=== PATIENT | male | born 1965 | race Hispanic/Latino ===

== ENCOUNTER 2016-12-16 23:33 | Observation (INO) | payer OTHER ==
--- NOTE | 2016-12-16 23:37 | EDPD ---
HPI Stroke - General Time Seen by Provider: 12/16/16 23:35 Historian: Spouse, EMS - History of Present Illness Narrative History of Present Illness (Free Text): 12/16/16 23:34 Kiel Bryant is a 51 year old male, whose past medical history includes recurrent TIAs, depression, anxiety, COPD, and alcoholism, who presents to the Emergency department brought in by EMS accompanied by complaining of weakness and altered mental status prior to arrival. states patient returned from his sister's wake earlier today and began complaining of left- sided chest pain radiating to his left arm. states patient then began slurring his speech and experiencing generalized weakness. Patient became poorly responsive with a blank stare and non-verbal. Limited HPI and ROS due to patient's altered mental status. Date:: 12/16/16 Time: 23:34 Onset:: Just prior to presenting Timing: Currently Symptomatic Context: Home Associated Symptoms: Chest pain, Dysarthria Exacerbated by: Nothing Relieved by: Nothing - Location Location: Speech rTPA Inclusion/Exclusion - Refusal of Treatment Patient Refused Treatment: No - Inclusion Criteria for Altepase Patient is 18 years or Older: Yes The Clinical Diagnosis of Ischemic Stroke That is Causing a Potentially Disabling Neurological Deficit: No Time of Onset is Well Established to be Less Than 270 Minute Before Treatment Would Begin: Yes Risk/Benefit Discussed With Patient/Family Member Present: Yes - Exclusion Criteria for Altepase Uncontrolled Hypertension at Time of Treatment (Systolic BP above 185 or Diastolic BP above 110 mmHg): No Active Internal Bleeding: No Known Bleeding Diathesis Including but Not Limited to: Platelets Below 100,000/ mm,PTT Above 40 sec After Heparin Use, Current Use of Oral Anitcoagulant With INR Greater Than 1.7 or PT Greater Than 15 secs: No Evidence of an Intracranial Hemorrhage: No Evidence of Major Acute Infarct With Signs Greater Than 1/3 MCA Territory: No Suspicion of Subarachnoid Hemorrhage on Pretreatment Evaluation Even if CT Head Negative For Hemorrhage: No - Warning to TPA With Conditions Following Conditions Weighed Against Anticipated Benefit: Yes Condition: Stroke Serevity Too Mild, Rapid Improvement Past Medical History - Provider Review Nursing Documentation Reviewed: Yes - Infectious Disease Hx of Infectious Diseases: None - Tetanus Immunization Tetanus Immunization: Unknown - Past Medical History Past Medical History: No Previous - Cardiac Hx Cardiac Disorders: No - Pulmonary Hx Chronic Obstructive Pulmonary Disease (COPD): Yes - Neurological HX Cerebrovascular Accident: Yes - HEENT Hx HEENT Disorder: No - Renal Hx Renal Disorder: No - Endocrine/Metabolic Hx Endocrine Disorders: No - Hematological/Oncological Hx Blood Disorders: No - Integumentary Hx Dermatological Disorder: No - Musculoskeletal/Rheumatological Hx Falls: No - Gastrointestinal Hx Gastrointestinal Disorders: No Hx Pancreatitis: Yes - Genitourinary/Gynecological Hx Genitourinary Disorders: No - Psychiatric Hx Psychophysiologic Disorder: Yes Hx Anxiety: Yes Hx Depression: Yes Hx Substance Use: No - Past Surgical History Past Surgical History: No Previous - Surgical History Hx Amputation: No Hx Appendectomy: No Hx Cardiac Catheterization: No Hx Cholecystectomy: No Hx Coronary Stent: No Hx Gastric Bypass Surgery: No Hx Hysterectomy: No Hx Joint Replacement: No Hx Kidney Transplant: No Hx Liver Transplant: No Hx Mastectomy: No Hx Musculoskeletal Surgery: No Hx Open Heart Surgery: No Hx Orthopedic Surgery: No Hx Splenectomy: No Hx Valve Replacement: No Other/Comment: ziyad ears, growths removed hearing loss left ear - Anesthesia Hx Anesthesia: Yes Hx Anesthesia Reactions: No Hx Malignant Hyperthermia: No - Suicidal Assessment Feels Threatened In Home Enviroment: No Family/Social History - Family/Social History Family History: Non-Contributory - Review Nursing documentation reviewed.: Yes Allergies/Home Meds Allergies/Adverse Reactions: Allergies No Known Allergies Allergy (Verified 12/17/16 00:00) Home Medications: Home Meds Medication Instructions Recorded Confirmed Aspirin [Ecotrin] 81 mg PO DAILY 03/24/16 12/17/16 Gabapentin [Neurontin] 300 mg PO QID 12/17/16 12/17/16 Review of Systems - Review of Systems Systems not reviewed;Unavailable: Altered Mental Status Constitutional: Other (+generalized weakness) Neurological: Speech Changes (+slurred speech), Other (+poorly responsive) ED Stroke Physical Exam Vital Signs Reviewed: Yes Temperature: Afebrile Blood Pressure: Hypertensive Pulse: Regular Respiratory Rate: Normal Appearance: Positive for: Non-Toxic, Comfortable Pain Distress: None Mental Status: Positive for: other (Blank stare, non-verbal) - Systems Exam Head: Present: Atraumatic, Normocephalic Pupils: Present: PERRL Extroacular Muscles: Present: EOMI Conjunctiva: Present: Normal Ears: Present: Normal, NORMAL TM, Normal Canal Mouth: Present: Moist Mucous Membranes Pharnyx: Present: Normal Nose (External): Present: Atraumatic Nose (Internal): Present: Normal Inspection Neck: Present: Normal Range of Motion Respiratory/Chest: Present: Clear to Auscultation, Good Air Exchange. No: Respiratory Distress, Accessory Muscle Use Cardiovascular: Present: Regular Rate and Rhythm, Normal S1, S2. No: Murmurs Abdomen: Present: Normal Bowel Sounds. No: Tenderness, Distention, Peritoneal Signs Upper Extremity: Present: Normal Inspection, Normal ROM, NORMAL PULSES, Neurovascularly Intact. No: Cyanosis, Edema Lower Extremity: Present: Normal Inspection, NORMAL PULSES, Normal ROM, Neurovascularly Intact. No: Edema Neurologic: Present: GCS=15, Motor Func Grossly Intact, Normal Sensory Function , Facial Droop (Slight flattening/facial droop on right). No: Speech Normal ( Non-verbal) Skin: Present: Warm, Dry, Normal Color. No: Rashes Psychiatric: Present: Other (Blank stare, non-verbal) Medical Decision Making ED Course and Treatment: 12/16/16 23:34 Impression: 51 year old male brought in for slurred speech, generalized weakness, and altered mental status. Differential Diagnosis include but are not limited to: TIA vs. CVA vs. altered mental status Plan: -- CT Head w/o contrast -- EKG -- Chest X-ray -- Labs, troponin, blood type and screen, and lipid panel -- Reassess and disposition Prior Visits: Notes and results from previous visits were reviewed. Progress Notes: 12/16/16 23:34 Code Stroke called. Pt taken CT scan. 12/16/16 23:[address] Rafi Gant, who is aware and agrees with plan. Pt does not meet criteria for TPA. 12/16/16 23:59 Reviewed radiology, Chest X-ray shows no active disease. CT Head shows: No acute intracranial hemorrhage, or suspicious mass effect. 12/17/16 00:05 Reviewed EKG, NSR at 64 bpm. Sinus arrhythmia. Incomplete RBBB. Non-specific ST/ T wave changes. Pt returned from CT scan. Pt now alert, talkative, and states he feels fine. 12/17/16 00:45 Case discussed with emergency medical technician/driver, who is aware and agrees with plan. 12/17/16 00:[address] Mendes, who is aware and agrees with plan. Accepts pt in to hospitalist service. Pt will go to Telemetry observation for TIA and chest pain. - Critical Care Critical Care Minutes: 30 minutes - Lab Interpretations I have reviewed the lab results: Yes - RAD Interpretation Narrative RAD Interpretations (Text): Chest X-ray shows no active disease. CT Head shows: Brain: No acute intracranial hemorrhage. No significant white matter disease. No edema. Ventricles: No significant ventriculomegaly. Bones: No acute displaced fracture. Sinuses: Unremarkable as visualized. No acute sinusitis. Mastoid air cells: Unremarkable as visualized. No mastoid effusion. IMPRESSION: No acute intracranial hemorrhage, or suspicious mass effect. Obedience Trainer: ED Physician, Radiologist - EKG Interpretation Interpreted by ED Physician: Yes Type: 12 lead EKG NIHSS Scale([place]) 2 Time Performed: 00:05 - How Severe is the Stoke Baseline Level of Consciousness: 0=Alert LOC to Questions: 0=Both comments correct LOC to commands: 0=Obeys both correctly Best Gaze: 0=Normal Visual: 0=No visual loss Facial: 0=Normal Motor Arm - Left: 0=No drift Motor Arm - Right: 0=No drift Motor Leg - Left: 0=No drift Motor Leg - Right: 0=No drift Limb Ataxia: 0=Absent Sensory: 0=Normal Best Language: 0=No aphasia Dysarthia: 0=Normal articulation Extinction & Inattention (Neglect): 0=Normal, no object Score: 0 Risk Level: No Stroke Risk - Scribe Statement The provider has reviewed the documentation as recorded by the Scribmaria ines Grey All medical record entries made by the Scribe were at my direction and personally dictated by me. I have reviewed the chart and agree that the record accurately reflects my personal performance of the history, physical exam, medical decision making, and the department course for this patient. I have also personally directed, reviewed, and agree with the discharge instructions and disposition. NIHSS Scale ([place]) Time Performed: 23:34 - How Severe is the Stoke Baseline Level of Consciousness: 1=Drowsy LOC to Questions: 0=Both comments correct LOC to commands: 0=Obeys both correctly Best Gaze: 0=Normal Visual: 0=No visual loss Facial: 1=Minor asymmetry Motor Arm - Left: 0=No drift Motor Arm - Right: 0=No drift Motor Leg - Left: 0=No drift Motor Leg - Right: 0=No drift Limb Ataxia: 0=Absent Sensory: 0=Normal Best Language: 0=No aphasia Dysarthia: 0=Normal articulation Extinction & Inattention (Neglect): 0=Normal, no object Score: 2 Risk Level: Minor Stroke Risk Disposition/Present on Arrival - Present on Arrival Any Indicators Present on Arrival: No History of DVT/PE: No History of Uncontrolled Diabetes: No Urinary Catheter: No History of Decub. Ulcer: No History Surgical Site Infection Following: None - Disposition Have Diagnosis and Disposition been Completed?: Yes Diagnosis: Chest pain, Transient ischemic attack Disposition: HOSPITALIZED Disposition Time: 00:52 Patient Plan: Observation Patient Problems: Current Active Problems Problem Status Onset Chest pain Acute Transient ischemic attack Acute Condition: STABLE
[2016-12-16 23:52] LABS: ADD MANUAL DIFF? NO
[2016-12-16 23:55] LABS: BASO # 0.07 K/mm3 (0.0-2.0); BASO % 0.5 % (0.0-3.0); EOS # 1.1 (0.0-0.7); GRAN # 6.81 (1.4-6.5); GRAN % 51.7 % (50.0-68.0); HEMATOCRIT 40.9 % (42.0-52.0); LYMPH # 4.1 (1.2-3.4); LYMPH % 30.9 % (22.0-35.0); MEAN CORPUSCULAR HEMOGLOBIN 28.2 pg (25.0-35.0); MEAN PLATELET VOLUME 9.1 fl (7.0-11.0); MONO # 1.2 (0.1-0.6); MONO % 8.9 % (1.0-6.0); PLATELET COUNT 259 10^3/uL (120.0-450.0); WHITE BLOOD COUNT 13.2 10^3/ul (4.5-11.0)
--- NOTE | 2016-12-16 23:55 | CT ---
EXAM: CT Head Without Intravenous Contrast CLINICAL HISTORY: 51 years old, male; Signs and symptoms; Altered mental status/memory loss; Additional info: Code stroke TECHNIQUE: Axial computed tomography images of the head/brain without intravenous contrast. This CT exam was performed using one or more of the following dose reduction techniques: automated exposure control, adjustment of the mA and/or kV according to patient size, and/or use of iterative reconstruction technique. COMPARISON: CT - HEAD W/O CONTRAST 03/24/2016 8:34:33 AM FINDINGS: Brain: No acute intracranial hemorrhage. No significant white matter disease. No edema. Ventricles: No significant ventriculomegaly. Bones: No acute displaced fracture. Sinuses: Unremarkable as visualized. No acute sinusitis. Mastoid air cells: Unremarkable as visualized. No mastoid effusion. IMPRESSION: No acute intracranial hemorrhage, or suspicious mass effect.
[2016-12-17 00:02] LABS: INR 0.99 (0.93-1.08); PARTIAL THROMBOPLASTIN TIME 28.1 Seconds (23.7-30.8)
[2016-12-17 00:21] LABS: TROPONIN I < 0.01 ng/mL
[2016-12-17 00:28] LABS: ALB/GLOB RATIO 1.1 (1.1-1.8); ALKALINE PHOSPHATASE 69 U/L (38-133); ALT/SGPT 22 U/L (7-56); AST/SGOT 18 U/L (15-59); BILIRUBIN,TOTAL 0.5 mg/dL (0.2-1.3); BLOOD UREA NITROGEN 20 mg/dL (7-21); CALCIUM 9.3 mg/dL (8.4-10.5); CARBON DIOXIDE 26 mmol/L (21-33); CHLORIDE 97 mmol/L (98-107); CHOLESTEROL 195 mg/dL (130-200); GFR AFRICAN-AMERICAN > 60; GLUCOSE,RANDOM 104 mg/dL (70-110); SODIUM 138 mmol/L (132-148); TOTAL PROTEIN 8.3 g/dL (5.8-8.3)
--- NOTE | 2016-12-17 02:42 | CP.PCM.HP ---
<Dk Dempsey - Last Filed: 12/17/16 04:27> History of Present Illness - History of Present Illness History of Present Illness: Dk Dempsey D.O. PGY-1, Internal Medicine Resident, Night Float Admission CC: episode of blank staring and tight body 51 year old male with a PMH of sixteen transient ischemic attacks and left ear deafness who presents to [facility] on 12/17/16 after an episode at home where he just stared blankly and was very stiff. Patient is accompanied by who is able to recall the events since the patient remembers only leading up to the event. Patient states that his sister 2 days ago and today was her wake. He attended both the morning and evening wake and was doing ok, but when he got home and sat down he felt strange. states that at this moment was when he was "just sitting there staring out, like he wasn't really there, and his body was all stiff." Patient denies ever having had these symptoms before. They cannot think of anything at that time that could have triggered it. Patient states that he did have one seizure in the past while admitted for a TIA that consisted of tonic-clonic movements and LOC. Otherwise patient also admits that he has been feeling "off" for at least 3 days. Patient denies any other symptoms , loss of urine or feces, tongue biting, or other symptoms. 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 PMH: as above PSH: left ear surgery x2 SH: smokes 1ppd x 33 years, denies alcohol or drug use FH: denies Meds: reviewed Allergies: NKA Present on Admission - Present on Admission Any Indicators Present on Admission: No Review of Systems - Constitutional Constitutional: absent: Anorexia, Chills, Fatigue - EENT Eyes: absent: Blind Spots, Blurred Vision Ears: absent: Decreased Hearing, Ear Discharge Nose/Mouth/Throat: absent: Epistaxis, Nasal Congestion - Cardiovascular Cardiovascular: absent: Chest Pain, Leg Edema, Palpitations - Respiratory Respiratory: absent: Cough, Dyspnea - Gastrointestinal Gastrointestinal: absent: Abdominal Pain, Constipation, Diarrhea, Nausea, Vomiting - Genitourinary Genitourinary: absent: Dysuria, Hematuria - Musculoskeletal Musculoskeletal: absent: Abnormal Gait, Arthralgias, Neck Pain - Integumentary Integumentary: absent: Pruritus, Rash, Sores - Neurological Neurological: Memory Loss, Other (tonic) Past Patient History - Infectious Disease Hx of Infectious Diseases: None - Tetanus Immunizations Tetanus Immunization: Unknown - Past Medical History & Family History Past Medical History?: Yes - Past Social History Smoking Status: Light Smoker < 10 Cigarettes Daily - CARDIAC Hx Cardiac Disorders: No - PULMONARY Hx Chronic Obstructive Pulmonary Disease (COPD): Yes - NEUROLOGICAL HX Cerebrovascular Accident: Yes - HEENT Hx HEENT Problems: No - RENAL Hx Chronic Kidney Disease: No - ENDOCRINE/METABOLIC Hx Endocrine Disorders: No - HEMATOLOGICAL/ONCOLOGICAL Hx Blood Disorders: No - INTEGUMENTARY Hx Dermatological Problems: No - MUSCULOSKELETAL/RHEUMATOLOGICAL Hx Falls: No - GASTROINTESTINAL Hx Gastrointestinal Disorders: No Hx Pancreatitis: Yes - GENITOURINARY/GYNECOLOGICAL Hx Genitourinary Disorders: No - PSYCHIATRIC Hx Psychophysiologic Disorder: Yes Hx Anxiety: Yes Hx Depression: Yes Hx Substance Use: No - SURGICAL HISTORY Hx Amputation: No Hx Appendectomy: No Hx Cardiac Catheterization: No Hx Cholecystectomy: No Hx Coronary Stent: No Hx Gastric Bypass Surgery: No Hx Hysterectomy: No Hx Joint Replacement: No Hx Kidney Transplant: No Hx Liver Transplant: No Hx Mastectomy: No Hx Musculoskeletal Surgery: No Hx Open Heart Surgery: No Hx Orthopedic Surgery: No Hx Splenectomy: No Hx Valve Replacement: No Other/Comment: ziyad ears, growths removed hearing loss left ear - ANESTHESIA Hx Anesthesia: Yes Hx Anesthesia Reactions: No Hx Malignant Hyperthermia: No Meds Allergies/Adverse Reactions: Allergies Allergy/AdvReac Type Severity Reaction Status Date / Time No Known Allergies Allergy Verified 12/17/16 00:00 Physical Exam - Constitutional Additional comments: well developed, well nourished, pleasant male resting in bed in NAD, at bedside - Head Exam Head Exam: ATRAUMATIC, NORMOCEPHALIC - Eye Exam Eye Exam: EOMI, PERRL. absent: Conjunctival injection, Scleral icterus - ENT Exam ENT Exam: Mucous Membranes Moist, Normal Oropharynx - Neck Exam Neck exam: Positive for: Full Rom. Negative for: Lymphadenopathy - Respiratory Exam Respiratory Exam: Clear to Auscultation Bilateral. absent: Rales, Rhonchi, Wheezes - Cardiovascular Exam Cardiovascular Exam: RRR, +S1, +S2. absent: Diastolic murmur, Gallop, Rubs, Systolic Murmur - GI/Abdominal Exam GI & Abdominal Exam: Normal Bowel Sounds, Soft. absent: Distended, Tenderness - Extremities Exam Extremities exam: Positive for: normal capillary refill, pedal pulses present. Negative for: calf tenderness, joint swelling, pedal edema, tenderness - Back Exam Back exam: absent: muscle spasm, paraspinal tenderness, vertebral tenderness - Neurological Exam Neurological exam: Alert, Oriented x3 Additional comments: mild right facial palsy with drop, otherwise cranial nerves intact, speech is fluid and coherent, diffusely 4/5 muscle strength but appears secondary to poor effort ("I just feel weak all over"), WHELAN, SLIT, other than previously known deficits appears nonfocal - Skin Skin Exam: Dry, Intact, Warm Results - Vital Signs Recent Vital Signs: Last Vital Signs Temp 98.2 F 12/16/16 23:57 Pulse 62 12/17/16 01:29 Resp 17 12/17/16 01:29 BP 126/75 12/17/16 01:29 Pulse Ox 100 12/17/16 01:29 - Labs Result Diagrams: 12/16/16 23:45 12/16/16 23:45 Assessment & Plan - Assessment and Plan (Free Text) Assessment: 51 year old male with a PMH of sixteen transient ischemic attacks and left ear deafness who presents to [facility] after an episode at home where he just stared blankly and was very stiff. Plan: 1. Staring episode Placed in obs Etiology may include TIA vs seizure vs stress induced with recent of sister Head CT reviewed by myself and read reviewed as well, no acute intracranial bleed or mass effect noted Neurochecks [id number] Gant neurologist EEG ordered Lipid panel, thyroid profile, HgbA1C, and Heart healthy diet Drug screen ordered I spent greater than 45 minutes with the patient, of which more than 20 minutes was spent counseling the patient in detail about his risk factors, particularly smoking, and how cessation would be one of the greatest changes he could make towards greater health, patient verbalized understanding and agreement, wants to quit so was offered education on methods, will think about it and get back to us 2. Leukocytosis Mild at this time, likely reactive Will follow up with a CBC in the AM 3. Tobacco abuse Started nicotine patch As above, counseled on cessation 4. Hx of alcohol abuse Although not disclosed by patient, known alcohol abuse Drug and alcohol levels ordered PRN ativan placed Give one time dose due to some tremor CIWA placed DVT ppx: SCDs Patient was seen and examined at bedside and case was discussed at length with attending physician. - Date & Time Date: 12/17/16 Time: 03:00 <Rod Mendes MD - Last Filed: 12/18/16 14:39> Results - Vital Signs Recent Vital Signs: Last Vital Signs Temp 98 F 12/17/16 12:00 Pulse 53 L 12/17/16 14:00 Resp 18 12/17/16 12:00 BP 112/59 L 12/17/16 12:00 Pulse Ox 97 12/17/16 05:29 - Labs Result Diagrams: 12/16/16 23:45 12/16/16 23:45 Attending/Attestation - Attestation I have personally seen and examined this patient.: Yes I have fully participated in the care of the patient.: Yes I have reviewed all pertinent clinical information: Yes Notes (Text): 12/18/16 14:39 -I agree with the above H&P completed by the resident physician.
[2016-12-17 04:06] VITALS: BMI 26.4
[2016-12-17 04:06] LABS: ALCOHOL SERUM < 10 mg/dL (0-10)
[2016-12-17 04:13] LABS: FREE T4 0.96 ng/dL (0.78-2.19)
[2016-12-17 04:27] LABS: THYROID STIMULATING HORMONE 5.45 mIU/mL (0.46-4.68)
[2016-12-17 05:30] VITALS: O2SAT 97
[2016-12-17 07:20] LABS: CHOLESTEROL 180 mg/dL (130-200)
--- NOTE | 2016-12-17 08:02 | RAD ---
HISTORY: tia COMPARISON: 03/24/2016 FINDINGS: LUNGS: No active pulmonary disease. PLEURA: No significant pleural effusion identified, no pneumothorax apparent. CARDIOVASCULAR: Normal. OSSEOUS STRUCTURES: No significant abnormalities. VISUALIZED UPPER ABDOMEN: Normal. OTHER FINDINGS: None. IMPRESSION: No active disease.
--- NOTE | 2016-12-17 12:11 | CARD ---
APPROVED REPORT EKG Measurement Heart [id number] IL 158P57 [id number] <Conclusion> Marked sinus bradycardia Septal infarct, age undetermined Abnormal ECG
[2016-12-17 12:15] VITALS: BP 112/59; PULSE 53; RESP 18; TEMP 98
--- NOTE | 2016-12-17 12:16 | CARD ---
APPROVED REPORT EKG Measurement Heart [id number] <Conclusion> Normal sinus rhythm with sinus arrhythmia Possible Left atrial enlargement Incomplete right bundle branch block Borderline ECG
--- NOTE | 2016-12-17 13:16 | CON ---
DATE: 12/17/2016 This is a 51-year-old male with a past medical history of several TIAs and admitted with an episode o f starting blank stare and becoming stiff and thinks he had a seizure. Came to the hospital and call ed to evaluate the patient. The patient thinks he had a seizure. No tongue bite, no urinary inconti nence. PAST MEDICAL HISTORY: As above. SOCIAL HISTORY: Smokes 1 pack per day. ALLERGIES: No known drug allergy. PHYSICAL EXAMINATION: HEENT: Normocephalic, atraumatic. NECK: Supple. NEUROLOGIC: Alert, awake, oriented x 3. No aphasia. Cranial nerves II-XII were tested. Pupils edith ctive. EOM intact. Visual field full. No facial asymmetry. Tongue midline. Motor examination: M oves all the extremities equally. Tone normal. Deep tendon reflexes 1+. Both plantars are downgoin g. Sensory appears intact. Cerebellar, gait deferred. IMPRESSION: Rule out seizure, though less likely, and multiple transient ischemic attacks. CAT scan of the head is negative. WBC 13.2, hemoglobin 13.9, hematocrit 40.9, platelets 259. Sodium 138, potassium 4, chloride 97, CO2 26, glucose 104, BUN 20, creatinine 1. Workup in progress. We will do EEG and follow up. Raulito Gant MD cc: [id number] TT: 12/17/2016 13:15:34 Confirmation # [id number] Dictation # [id number]
--- NOTE | 2016-12-17 15:22 | CP.PCM.DIS ---
<JuanJulieta - Last Filed: 12/17/16 15:11> Provider - Provider Date of Admission: 12/17/16 01:08 Attending physician: Jadiel Pickering MD Primary care physician: Mary Saucedo DO Consults: Neuro: Stalin Time Spent in preparation of Discharge (in minutes): 35 Hospital Course - Lab Results Lab Results: Most Recent Lab Values WBC 13.2 10^3/ul (4.5-11.0) H 12/16/16 23:45 RBC 4.93 10^6/uL (3.5-6.1) 12/16/16 23:45 Hgb 13.9 gm/dL (14.0-18.0) L 12/16/16 23:45 Hct 40.9 % (42.0-52.0) L 12/16/16 23:45 MCV 83.0 fL (80.0-105.0) 12/16/16 23:45 MCH 28.2 pg (25.0-35.0) 12/16/16 23:45 MCHC 34.0 g/dl (31.0-37.0) 12/16/16 23:45 RDW 16.0 % (11.5-14.5) H 12/16/16 23:45 Plt Count 259 10^3/uL (120.0-450.0) 12/16/16 23:45 MPV 9.1 fl (7.0-11.0) 12/16/16 23:45 Gran % 51.7 % (50.0-68.0) 12/16/16 23:45 Lymph % (Auto) 30.9 % (22.0-35.0) 12/16/16 23:45 Leake % (Auto) 8.9 % (1.0-6.0) H 12/16/16 23:45 Eos % (Auto) 8.0 % (1.5-5.0) H 12/16/16 23:45 Baso % (Auto) 0.5 % (0.0-3.0) 12/16/16 23:45 Gran # 6.81 (1.4-6.5) H 12/16/16 23:45 Lymph # 4.1 (1.2-3.4) H 12/16/16 23:45 Leake # 1.2 (0.1-0.6) H 12/16/16 23:45 Eos # 1.1 (0.0-0.7) H 12/16/16 23:45 Baso # 0.07 K/mm3 (0.0-2.0) 12/16/16 23:45 PT 10.7 Seconds (9.9-11.8) 12/16/16 23:45 INR 0.99 (0.93-1.08) 12/16/16 23:45 APTT 28.1 Seconds (23.7-30.8) 12/16/16 23:45 Sodium 138 mmol/L (132-148) 12/16/16 23:45 Potassium 4.0 mmol/L (3.6-5.0) 12/16/16 23:45 Chloride 97 mmol/L (98-107) L 12/16/16 23:45 Carbon Dioxide 26 mmol/L (21-33) 12/16/16 23:45 Anion Gap 19 (10-20) 12/16/16 23:45 BUN 20 mg/dL (7-21) 12/16/16 23:45 Creatinine 1.0 mg/dL (0.5-1.4) 12/16/16 23:45 Est GFR ( Amer) > 60 12/16/16 23:45 Est GFR (Non-Af Amer) > 60 12/16/16 23:45 POC Glucose (mg/dL) 85 mg/dL (65-110) 12/17/16 11:07 Random Glucose 104 mg/dL (70-110) 12/16/16 23:45 Hemoglobin A1c 5.7 % (4.2-6.5) 12/16/16 23:45 Calcium 9.3 mg/dL (8.4-10.5) 12/16/16 23:45 Total Bilirubin 0.5 mg/dL (0.2-1.3) 12/16/16 23:45 AST 18 U/L (15-59) 12/16/16 23:45 ALT 22 U/L (7-56) 12/16/16 23:45 Alkaline Phosphatase 69 U/L (38-133) 12/16/16 23:45 Troponin I < 0.01 ng/mL 12/17/16 06:30 Total Protein 8.3 g/dL (5.8-8.3) 12/16/16 23:45 Albumin 4.3 g/dL (3.0-4.8) 12/16/16 23:45 Globulin 4.0 gm/dL 12/16/16 23:45 Albumin/Globulin Ratio 1.1 (1.1-1.8) 12/16/16 23:45 Triglycerides 92 mg/dL (35-160) 12/17/16 06:30 Cholesterol 180 mg/dL (130-200) 12/17/16 06:30 LDL Cholesterol Direct 119 mg/dL (0-129) 12/17/16 06:30 HDL Cholesterol 38 mg/dL (29-60) 12/17/16 06:30 Free T4 0.96 ng/dL (0.78-2.19) 12/16/16 23:45 TSH 3rd Generation 5.45 mIU/mL (0.46-4.68) H 12/16/16 23:45 Urine Opiates Screen Negative (NEGATIVE) 12/17/16 00:39 Urine Methadone Screen Negative (NEGATIVE) 12/17/16 00:39 Ur Barbiturates Screen Negative (NEGATIVE) 12/17/16 00:39 Ur Phencyclidine Scrn Negative (NEGATIVE) 12/17/16 00:39 Ur Amphetamines Screen Negative (NEGATIVE) 12/17/16 00:39 U Benzodiazepines Scrn Negative (NEGATIVE) 12/17/16 00:39 U Oth Cocaine Metabols Negative (NEGATIVE) 12/17/16 00:39 U Cannabinoids Screen Negative (NEGATIVE) 12/17/16 00:39 Alcohol, Quantitative < 10 mg/dL (0-10) 12/16/16 23:45 Blood Type A POSITIVE 12/17/16 00:29 Blood Type Confirm A POSITIVE 12/17/16 00:40 Antibody Screen Negative 12/17/16 00:29 BBK History Checked No verified bt 12/17/16 00:29 - Hospital Course Hospital Course: This is a 51Y M with PMH CVA, multiple TIA, seizure, alcoholism, COPD, anxiety and depression who was admitted for an episode of blank staring and unresponsive after sister's . CT head was negative. Patient did not show any neurological deficits during the hospital stay and was able to walk to and from bathroom on his own. He did not have any further staring episodes. Patient had a carotid doppler with final read pending. Neurology was consulted and EEG was done. The neurologist suggested that the patient should stop taking neurontin and begin taking Keppra 500mg BID. The patient can follow up with Dr. Gant in his office in [address] Gant will review the EEG results with the patient. The patient was also given Lipitor 10mg daily for history of CVA. He can follow up with his PMD in 1 week. Due to the recent passing of his sister and history of depression, patient can follow up with psychiatry although he denies having depression at this time. - Date & Time of H&P Date of H&P: 12/17/16 Time of H&P: 02:00 Discharge Exam - Head Exam Head Exam: ATRAUMATIC, NORMOCEPHALIC - Eye Exam Eye Exam: EOMI, Normal appearance, PERRL Pupil Exam: NORMAL ACCOMODATION - ENT Exam ENT Exam: Mucous Membranes Moist - Neck Exam Neck exam: Full Rom - Respiratory Exam Respiratory Exam: Clear to PA & Lateral, NORMAL BREATHING PATTERN, UNREMARKABLE. absent: Rales, Rhonchi, Wheezes, Stridor - Cardiovascular Exam Cardiovascular Exam: REGULAR RHYTHM, +S1, +S2. absent: Gallop, Rubs, Systolic Murmur - GI/Abdominal Exam GI & Abdominal Exam: Normal Bowel Sounds, Soft, Unremarkable. absent: Mass, Rebound, Rigid, Tenderness - Extremities Exam Extremities exam: normal inspection - Neurological Exam Neurological exam: Alert, CN II-XII Intact, Normal Gait, Oriented x3 - Psychiatric Exam Psychiatric exam: Normal Affect, Normal Mood - Skin Skin Exam: Dry, Intact, Normal Color, Warm Discharge Plan - Discharge Medications Prescriptions: Atorvastatin [Lipitor] 10 mg PO DIN #30 tab levETIRAcetam [Keppra] 500 mg PO BID #60 tab - Follow Up Plan Condition: STABLE Disposition: HOME/ ROUTINE Instructions: Chest Pain (DC), Recurrent Seizures in Adults (DC) Additional Instructions: 1. Stop taking Gabapentin 2. Start taking Keppra 500mg BID and Lipitor 10mg daily 3. Follow up with Dr. Gant in 1 week. 4. Follow up with PMD at [facility] in 1 week. 5. Follow up with psych as needed for depression. Referrals: Mary Saucedo DO [Primary Care Provider] - Vickey Gant MD [Staff Provider] - Clinical Quality Measures - Date & Time of Discharge Summary Date of Discharge Summary: 12/17/16 Time of Discharge Summary: 15:12 <Jadiel Pickering - Last Filed: 12/17/16 16:08> Provider - Provider Date of Admission: 12/17/16 01:08 Attending physician: Jadiel Pickering MD Primary care physician: Mary Saucedo DO Hospital Course - Lab Results Lab Results: Most Recent Lab Values WBC 13.2 10^3/ul (4.5-11.0) H 12/16/16 23:45 RBC 4.93 10^6/uL (3.5-6.1) 12/16/16 23:45 Hgb 13.9 gm/dL (14.0-18.0) L 12/16/16 23:45 Hct 40.9 % (42.0-52.0) L 12/16/16 23:45 MCV 83.0 fL (80.0-105.0) 12/16/16 23:45 MCH 28.2 pg (25.0-35.0) 12/16/16 23:45 MCHC 34.0 g/dl (31.0-37.0) 12/16/16 23:45 RDW 16.0 % (11.5-14.5) H 12/16/16 23:45 Plt Count 259 10^3/uL (120.0-450.0) 12/16/16 23:45 MPV 9.1 fl (7.0-11.0) 12/16/16 23:45 Gran % 51.7 % (50.0-68.0) 12/16/16 23:45 Lymph % (Auto) 30.9 % (22.0-35.0) 12/16/16 23:45 Leake % (Auto) 8.9 % (1.0-6.0) H 12/16/16 23:45 Eos % (Auto) 8.0 % (1.5-5.0) H 12/16/16 23:45 Baso % (Auto) 0.5 % (0.0-3.0) 12/16/16 23:45 Gran # 6.81 (1.4-6.5) H 12/16/16 23:45 Lymph # 4.1 (1.2-3.4) H 12/16/16 23:45 Leake # 1.2 (0.1-0.6) H 12/16/16 23:45 Eos # 1.1 (0.0-0.7) H 12/16/16 23:45 Baso # 0.07 K/mm3 (0.0-2.0) 12/16/16 23:45 PT 10.7 Seconds (9.9-11.8) 12/16/16 23:45 INR 0.99 (0.93-1.08) 12/16/16 23:45 APTT 28.1 Seconds (23.7-30.8) 12/16/16 23:45 Sodium 138 mmol/L (132-148) 12/16/16 23:45 Potassium 4.0 mmol/L (3.6-5.0) 12/16/16 23:45 Chloride 97 mmol/L (98-107) L 12/16/16 23:45 Carbon Dioxide 26 mmol/L (21-33) 12/16/16 23:45 Anion Gap 19 (10-20) 12/16/16 23:45 BUN 20 mg/dL (7-21) 12/16/16 23:45 Creatinine 1.0 mg/dL (0.5-1.4) 12/16/16 23:45 Est GFR ( Amer) > 60 12/16/16 23:45 Est GFR (Non-Af Amer) > 60 12/16/16 23:45 POC Glucose (mg/dL) 85 mg/dL (65-110) 12/17/16 11:07 Random Glucose 104 mg/dL (70-110) 12/16/16 23:45 Hemoglobin A1c 5.7 % (4.2-6.5) 12/16/16 23:45 Calcium 9.3 mg/dL (8.4-10.5) 12/16/16 23:45 Total Bilirubin 0.5 mg/dL (0.2-1.3) 12/16/16 23:45 AST 18 U/L (15-59) 12/16/16 23:45 ALT 22 U/L (7-56) 12/16/16 23:45 Alkaline Phosphatase 69 U/L (38-133) 12/16/16 23:45 Troponin I < 0.01 ng/mL 12/17/16 06:30 Total Protein 8.3 g/dL (5.8-8.3) 12/16/16 23:45 Albumin 4.3 g/dL (3.0-4.8) 12/16/16 23:45 Globulin 4.0 gm/dL 12/16/16 23:45 Albumin/Globulin Ratio 1.1 (1.1-1.8) 12/16/16 23:45 Triglycerides 92 mg/dL (35-160) 12/17/16 06:30 Cholesterol 180 mg/dL (130-200) 12/17/16 06:30 LDL Cholesterol Direct 119 mg/dL (0-129) 12/17/16 06:30 HDL Cholesterol 38 mg/dL (29-60) 12/17/16 06:30 Free T4 0.96 ng/dL (0.78-2.19) 12/16/16 23:45 TSH 3rd Generation 5.45 mIU/mL (0.46-4.68) H 12/16/16 23:45 Urine Opiates Screen Negative (NEGATIVE) 12/17/16 00:39 Urine Methadone Screen Negative (NEGATIVE) 12/17/16 00:39 Ur Barbiturates Screen Negative (NEGATIVE) 12/17/16 00:39 Ur Phencyclidine Scrn Negative (NEGATIVE) 12/17/16 00:39 Ur Amphetamines Screen Negative (NEGATIVE) 12/17/16 00:39 U Benzodiazepines Scrn Negative (NEGATIVE) 12/17/16 00:39 U Oth Cocaine Metabols Negative (NEGATIVE) 12/17/16 00:39 U Cannabinoids Screen Negative (NEGATIVE) 12/17/16 00:39 Alcohol, Quantitative < 10 mg/dL (0-10) 12/16/16 23:45 Blood Type A POSITIVE 12/17/16 00:29 Blood Type Confirm A POSITIVE 12/17/16 00:40 Antibody Screen Negative 12/17/16 00:29 BBK History Checked No verified bt 12/17/16 00:29 Attending/Attestation - Attestation I have personally seen and examined this patient.: Yes I have fully participated in the care of the patient.: Yes I have reviewed all pertinent clinical information, including history, physical exam and plan: Yes Notes (Text): 12/17/16 16:04 attending note; Patient seen and examined with resident. This is a 51 year old Male with PMH of TIA, seizure, alcoholism, COPD, anxiety and depression who was admitted for an episode of blank staring and unresponsive after sister's . CT head is negative. Neurology evaluation appreciated. Started on keppra. Neurontin stopped. EEG done.patient will follow-up with Dr. Gant in 1 week. Continue aspirin and lipitor. PT evaluation Appreciated. discharge home today. diagnosis; Seizure tia depression
--- NOTE | 2016-12-17 18:41 | US ---
PROCEDURE: Bilateral carotid artery duplex ultrasound HISTORY: Carotid stenosis TIA PHYSICIAN(S): Skyler Johnson MD. TECHNIQUE: Duplex sonography and color-flow Doppler were used to evaluate the carotid bifurcations and limited segments of the vertebral arteries bilaterally. FINDINGS: There is mild smooth hypoechoic plaque noted at the carotid bifurcations bilaterally. The peak systolic velocity in the proximal right internal carotid artery is 71 cm/sec. This corresponds to a 0-19 percent proximal right ICA stenosis. Normal systolic velocities are noted in the proximal right external carotid artery. There is antegrade flow in the right vertebral artery. The peak systolic velocity in the proximal left internal carotid artery is 90 cm/sec. This corresponds to a 0-19 percent proximal left ICA stenosis. Normal systolic velocities are noted in the proximal left external carotid artery. There is antegrade flow in the left vertebral artery. IMPRESSION: 1. Bilateral 0-19 percent proximal ICA stenoses. 2. Antegrade flow in both vertebral arteries.
[2016-12-18] MEDS ORDERED: Pantoprazole 40 mg EC Tab PO SCH (06:30)
--- NOTE | 2016-12-21 17:55 | EEG ---
DATE: 12/17/2016 CONDITION OF RECORDING. Drowsy. DIAGNOSIS: Seizures. MEDICATIONS: Neurontin, Ativan. INTERPRETATION: This is a 16-channel international recording. The background activity is composed o f 6-7 cycles per second. There is a small amount of beta activity of 16-20 cycles per second seen in this recording. There was an increased amount of theta activity of 5-7 cycles per second seen in th is recording. Drowsiness was characterized by mixed beta and theta activities. Sleep was characteri zed by vertex transient waves, sleep spindles and bilateral slowing. Photic stimulation showed no ch john showed in the tracing. No paroxysmal activity noted in this recording. CONCLUSION: This is an abnormal electroencephalogram due to presence of diffuse slowing throughout c onsistent with bilateral cerebral dysfunction. No evidence epileptiform activity. Please clinically correlate. Vickey Gant MD cc: [id number] TT: 12/21/2016 17:55:03 Confirmation # [id number] Dictation # [id number] mn
== END 2016-12-17 16:33 | disposition home or self-care (01) ==
LOC: ED 23:33 → ERH 12-17 01:08 → 2RNO 12-17 02:20
PROVIDERS: ADMIT Internal Medicine; ATTEND Internal Medicine
DX: G45.9 Transient cerebral ischemic attack, unspecified (principal); R07.9 Chest pain, unspecified; G51.0 Bell's palsy; F32.89 Other specified depressive episodes; F41.9 Anxiety disorder, unspecified; J44.9 Chronic obstructive pulmonary disease, unspecified; F10.21 Alcohol dependence, in remission; H91.92 Unspecified hearing loss, left ear; F17.210 Nicotine dependence, cigarettes, uncomplicated; R56.9 Unspecified convulsions; Z79.82 Long term (current) use of aspirin; Z79.899 Other long term (current) drug therapy; Z86.73 Personal history of transient ischemic attack (TIA), and cerebral infarction without residual deficits; Z87.19 Personal history of other diseases of the digestive system; R40.2412 Glasgow coma scale score 13-15, at arrival to emergency department; I45.10 Unspecified right bundle-branch block; D72.829 Elevated white blood cell count, unspecified